=== PATIENT | female | born 1985 | race Caucasian/White ===

== ENCOUNTER → 2016-11-20 | Outpatient (CLI) | payer OTHER ==
[~2016-11-20] MED LIST: BIRTH CONTROL PO; NAPROSYN500 MG PO; PRILOSEC20 M1 PO; SYNTHROID RP0.1 MG PO
== END | disposition home or self-care (01) ==
LOC: MRI 11-19 07:00
DX: M25.471 Effusion, right ankle (principal); Z87.81 Personal history of (healed) traumatic fracture

== ENCOUNTER 2018-05-05 10:57 | Emergency (ER) | payer OTHER ==
[~2018-05-05] VITALS: Ht 170.1 cm; Wt 77.1 kg
[2018-05-05] MEDS ORDERED: IBUPROFEN600 MG PO (13:16)
== END 2018-05-05 13:39 | disposition home or self-care (01) ==
LOC: ED 10:57
DX: S93.602A Unspecified sprain of left foot, initial encounter (principal); Z79.899 Other long term (current) drug therapy; X50.1XXA Overexertion from prolonged static or awkward postures, initial encounter; Y93.01 Activity, walking, marching and hiking; Y92.480 Sidewalk as the place of occurrence of the external cause; Y99.8 Other external cause status

== ENCOUNTER → 2019-07-04 | Outpatient (CLI) | payer OTHER ==
[~2019-07-04] MED LIST changes: +IBUPROFEN600 MG PO
== END | disposition home or self-care (01) ==
LOC: MRI 13:00
DX: R19.00 Intra-abdominal and pelvic swelling, mass and lump, unspecified site (principal)